=== PATIENT | male | born 2005 | race Caucasian/White ===

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

== ENCOUNTER 2023-12-12 16:40 | Emergency (ER) | payer OTHER, MEDICAID, SELFPAY ==
[2023-12-12 16:46] VITALS: BP 134/86; PULSE 63; RESP 18; TEMP 37.1; O2SAT 99; BMI 24.7
--- NOTE | 2023-12-12 16:49 | DI.US.S_ITS ---
PROCEDURE: US PERIPH VENOUS LOW EXTREM LT INDICATIONS: pain, sent for dvt r/o TECHNIQUE: Real-time imaging, as well as color and pulse Doppler interrogation, were performed of the lower extremity deep veins from the inguinal ligament to the popliteal fossa, with documentation of the visualized calf veins. COMPARISON: None. FINDINGS: The common femoral, femoral, popliteal, and the visualized calf veins are normally compressible, and free of intraluminal thrombus. Color and pulse Doppler demonstrate normal phasic intraluminal flow. There is normal augmentation response to distal compression maneuver. IMPRESSION: No findings of lower extremity deep venous thrombosis. Dictated by: Alpesh Hilliard M.D. on 12/12/2023 at 16:44 Approved by: Alpesh Hilliard M.D. on 12/12/2023 at 16:45
== END 2023-12-12 18:51 | disposition left against medical advice (07) ==
PROVIDERS: Emergency Provider Emergency Medicine
DX: M79.605 Pain in left leg (principal)
CPT/HCPCS: 93971; 99281